=== PATIENT | female | born 1950 | race Caucasian/White ===

== ENCOUNTER 2022-05-25 14:30 | Emergency (ER) | payer BC ==
[2022-05-25 14:54] VITALS: RESP 20; BMI 26.2
[2022-05-25] MEDS ORDERED: LISINOPRIL 10 MG TABLET ONE (15:06)
[2022-05-25] MEDS ORDERED: LISINOPRIL 10 MG TABLET PO ONE (15:06)
[2022-05-25 16:38] LABS: BASO % 0.7 % (0-2.0); EOS % 0.4 % (0-4.5); HEMATOCRIT 45.9 % (32.4-45.2); HEMOGLOBIN 15.4 GM/dL (10.7-15.3); MCH 29.4 pg (25.7-33.7); MCHC 33.5 g/dl (32.0-36.0); MEAN PLT VOLUME 8.1 fl (7.5-11.1); NEUT % 80.9 % (42.8-82.8); PLATELET COUNT 273 10^3/uL (134-434); RBC 5.22 M/mm3 (3.60-5.2); RDW 13.8 % (11.6-15.6); URINE APPEARANCE CLEAR; URINE BILIRUBIN NEGATIVE (NEGATIVE); URINE COLOR YELLOW; URINE GLUCOSE (UA) NEGATIVE (NEGATIVE); URINE KETONE NEGATIVE (NEGATIVE); URINE LEUK ESTERASE NEGATIVE (NEGATIVE); URINE NITRITE NEGATIVE (NEGATIVE); URINE PROTEIN NEGATIVE (NEGATIVE); URINE UROBILINOGEN 0.2 mg/dL (0.2-1.0); WHITE BLOOD COUNT 8.5 K/mm3 (4.0-10.0)
[2022-05-25 16:44] LABS: INR 1.12 (0.83-1.09); PROTHROMBIN TIME (PATIENT) 12.9 SEC (9.7-13.0)
[2022-05-25 16:47] LABS: ACTIVATED PTT 30.6 SECONDS (25.2-36.5)
[2022-05-25 16:54] LABS: CHLORIDE 108 mmol/L (98-107); SODIUM 146 mmol/L (136-145)
[2022-05-25 16:56] LABS: CALCIUM 9.9 mg/dL (8.5-10.1)
[2022-05-25 16:57] LABS: ALBUMIN 3.8 g/dl (3.4-5.0); ANION GAP 9 MMOL/L (8-16); BLOOD UREA NITROGEN 18.8 mg/dL (7-18); CO2 28 mmol/L (21-32); GLUCOSE,RANDOM 111 mg/dL (74-106)
[2022-05-25 17:00] LABS: CREATININE 0.8 mg/dL (0.55-1.3); SGOT/AST 25 U/L (15-37); SGPT/ALT 37 U/L (13-61)
[2022-05-25 17:01] LABS: TOT PROT 7.2 g/dl (6.4-8.2)
[2022-05-25 17:02] LABS: BILIRUBIN,TOTAL 0.3 mg/dL (0.2-1)
[2022-05-25 17:03] LABS: ALK PHOS 63 U/L (45-117)
[2022-05-25 17:10] VITALS: BP 144/89; PULSE 84; TEMP 97.1
[2022-05-25 17:28] LABS: METHADONE, UR NEGATIVE (NEGATIVE); PHENCYCLIDINE,URINE NEGATIVE (NEGATIVE); URINE BENZODIAZEPINES NEGATIVE (NEGATIVE)
[2022-05-25 17:39] LABS: COCAINE, UR NEGATIVE (NEGATIVE)
[2022-05-25 17:41] LABS: URINE BARBITURATES NEGATIVE (NEGATIVE)
[2022-05-25 17:42] LABS: OPIATES, URI NEGATIVE (NEGATIVE); URINE AMPHETAMINES NEGATIVE (NEGATIVE)
[2022-05-25] MEDS ORDERED: AMOX TR/POT CLAV 500MG/125MG TABLETS (FP) PO ONE (18:11)
[2022-05-25] MEDS ORDERED: AMOX TR/POT CLAV 500MG/125MG TABLETS (FP) ONE (18:58)
== END 2022-05-25 21:42 | disposition admitted as inpatient to this hospital (09) ==
LOC: JER 14:30
DX: R41.89 Other symptoms and signs involving cognitive functions and awareness (principal); R53.1 Weakness
CPT/HCPCS: 0241U-QW; 36415; 70450-TC; 71045-TC-FY; 80053; 80307; 81003; 82140; 84484; 85025; 85610; 85730; 87086; 93005; 93010; 99285-25